=== PATIENT | female | born 1995 | race Caucasian/White ===

== ENCOUNTER 2023-06-28 05:40 | Emergency (ER) | payer SELFPAY ==
[~2023-06-28] VITALS: Ht 149.9 cm; Wt 72.6 kg
[~2023-06-28 05:40] MED LIST: PRON INH
[2023-06-28 05:43] VITALS: BP 124/76; PULSE 103; RESP 18; O2SAT 97
[2023-06-28] MEDS ORDERED: predniSONE 20 MG TAB PO ONE (06:25)
[2023-06-28] MEDS ORDERED: PRED20TA5 PO (06:40)
[2023-06-28] MEDS ORDERED: ALBU0.0912 IH (07:00)
[2023-06-28 07:05] VITALS: BP 112/66; PULSE 100; RESP 14; TEMP 98; O2SAT 98
[2023-06-28 07:16] LABS: FLU A ANTIGEN negative (NEGATIVE); FLU B ANTIGEN negative (NEGATIVE)
== END 2023-06-28 07:05 | disposition home or self-care (01) ==
LOC: MED 05:40
DX: J45.901 Unspecified asthma with (acute) exacerbation (principal); Z20.822 Contact with and (suspected) exposure to COVID-19; B34.9 Viral infection, unspecified; Z79.899 Other long term (current) drug therapy
CPT/HCPCS: 87426; 87804; 99283; J7512